=== PATIENT | male | born 1990 | race Caucasian/White ===

== ENCOUNTER 2020-07-22 20:23 | Emergency (ER) | payer OTHER ==
[~2020-07-22] VITALS: Ht 177.8 cm; Wt 90.0 kg
[2020-07-22 21:09] VITALS: BP 124/89
[2020-07-22] MEDS ORDERED: AMOX-117 PO (22:04)
[2020-07-22 23:21] LABS: HIV ANTIBODY 1&2 RAPID NON-REACTIVE (Neg)
[2020-07-25 13:00] LABS: HBSAG SCREEN Negative (Negative)
== END 2020-07-22 23:00 | disposition home or self-care (01) ==
LOC: ER 20:23
DX: S60.412A Abrasion of right middle finger, initial encounter (principal); Z88.2 Allergy status to sulfonamides; Z79.899 Other long term (current) drug therapy; Y04.2XXA Assault by strike against or bumped into by another person, initial encounter; Y93.89 Activity, other specified; Y92.89 Other specified places as the place of occurrence of the external cause; Y99.8 Other external cause status
CPT/HCPCS: 36415; 73130; 86703; 86706; 86803; 87340; 99284

== ENCOUNTER 2022-02-10 03:06 | Emergency (ER) | payer OTHER ==
[~2022-02-10] VITALS: Ht 177.8 cm; Wt 97.7 kg
[2022-02-10 03:10] VITALS: BP 136/85
[2022-02-10] MEDS ORDERED: AMOX-115 PO (03:29)
[2022-02-10] MEDS ORDERED: ondansetron 4mg rapidly disintigrating tab PO ONE (03:30)
[2022-02-10] MEDS ORDERED: amox tr/potassium clavulanate 500mg/125mg TAB PO ONE (03:30)
== END 2022-02-10 03:52 | disposition home or self-care (01) ==
LOC: ER 03:06
DX: S60.511A Abrasion of right hand, initial encounter (principal); X58.XXXA Exposure to other specified factors, initial encounter; Y93.89 Activity, other specified; Y92.89 Other specified places as the place of occurrence of the external cause; Y99.8 Other external cause status
CPT/HCPCS: 73130; 99283